=== PATIENT | female | born 1940 | race Caucasian/White ===

== ENCOUNTER 2017-01-16 05:21 | Inpatient (IN) | payer OTHER, MEDICARE ==
[2016-12-25 08:55] LABS: URINE BILIRUBIN NEGATIVE (Negative); URINE BLOOD NEGATIVE (Negative); URINE COLOR YELLOW; URINE GLUCOSE-RANDOM* NEGATIVE (Negative); URINE KETONES NEGATIVE (Negative); URINE PROTEIN (DIPSTICK) NEGATIVE (Negative); URINE SPECIFIC GRAVITY 1.015 (1.003-1.035); URINE UROBILINOGEN 0.2 E.U./dl (0.2-1.0)
[2016-12-25 08:57] LABS: HEMATOCRIT 43.1 % (37.0-47.0); HEMOGLOBIN 14.5 gm/dL (12.0-15.0); MCH 29.5 pg (26.0-34.0); MCHC 33.7 g/dL (28.0-37.0); MCV 87.4 fL (80.0-100.0); RBC 4.93 mil/uL (4.20-5.00); RDW 13.5 % (10.5-14.5); URINE LEUKOCYTES-REFLEX TRACE (Negative); WBC 6.6 thou/uL (4.0-11.0)
[2016-12-25 09:09] LABS: CASTS None Seen /LPF (None Seen); CRYSTALS None Seen /LPF (None Seen); SQUAMOUS None Seen /LPF (0-3); URINE RBC None Seen /HPF (0-2); URINE WBC-REFLEX 0-5 Rare /HPF (0-5)
[2016-12-25 09:22] LABS: ALBUMIN 3.8 g/dL (3.4-5.0); CALCIUM 9.3 mg/dL (8.5-10.1); CREATININE 0.8 mg/dL (0.6-1.0); POTASSIUM 4.1 mmol/L (3.5-5.1)
[2017-01-15 15:00] VITALS: BP 144/83
[~2017-01-16] VITALS: Ht 157.5 cm; Wt 93.0 kg
[2017-01-16] VITALS (7 sets, daily range): BP systolic 107–144; BP diastolic 53–83
--- NOTE | ~2017-01-16 | D ---
[facility] [place] [address] DISCHARGE SUMMARY Name: MAR BATES Room #: 412-P [facility] IN M.R.#: [id number] Admission: 01/16/17 Attend Phys: Filippo Moran MD Discharge: Date of : 44 Report #: [id number] THIS REPORT FOR: //name// CC: Filippo PABLO unknown DATE OF SERVICE: 01/19/2017 FINAL DIAGNOSIS: End-stage degenerative arthritis, right knee. 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 She has progressive right knee pain with moderate varus malalignment and significant limitations. She has tried conservative measures without clear benefit and has elected to have his right total knee arthroplasty at this time. HOSPITAL COURSE: The patient was admitted and taken to the operating room on January 06. She underwent right total knee arthroplasty which she tolerated nicely. Postoperatively, she did have moderate pain and required some assistance for pain management. She made gradual progress with her pain control and with physical therapy. She still needs some assistance for ambulation, but seems to be sufficiently improved such that she prefers to go home with family assistance today on January 19. She is instructed to continue using a walker and have appropriate assistance available as needed. She will begin home visiting therapy and then gradually advance to outpatient therapy when symptoms allow. DISCHARGE MEDICATIONS: Include hydrocodone 10/325 one-half to one tablet q. 4 hours p.r.n. for pain and Xarelto 10 mg daily. I have instructed the patient and family to call me directly should there be any problems or questions. We can see her back in 1 week for routine followup and we will see her back in 2 weeks for suture removal. By: [id number] Filippo Moran MD /nt
--- NOTE | ~2017-01-16 | O ---
[facility] [place] [address] OPERATIVE REPORT Name: MAR BATES Room #: 412-P ADM IN M.R.#: [id number] Admission: 01/16/17 Attend Phys: Filippo Moran MD Discharge: Date of : 44 Report #: [id number] THIS REPORT FOR: //name// CC: Filippo PABLO unknown DATE OF SERVICE: 01/16/2017 PREOPERATIVE DIAGNOSIS: End-stage degenerative arthritis, right knee. POSTOPERATIVE DIAGNOSIS: End-stage degenerative arthritis, right knee. PROCEDURE: Right total knee arthroplasty. 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 Symptoms have been unresponsive to conservative measures including activity moderation and injections. Her x-ray findings are only moderate, but her clinical findings are much more severe suggesting more significant chondromalacia. We discussed treatment options and she has elected to go ahead with right total knee arthroplasty. DESCRIPTION OF PROCEDURE: The patient was taken to the operating room where she was placed under general anesthesia. Prophylactic intravenous antibiotics were administered. The right knee and leg were meticulously prepped and draped and a thigh tourniquet inflated to 300 mmHg. An anterior longitudinal skin incision was made and carried through the medial retinaculum. The patella was reflected laterally rather marked degenerative change on the patella and the medial compartment was noted. There was less severe damage in the lateral side. It certainly seemed appropriate to proceed with total joint replacement given the findings. The [employer] knee system was utilized. Intramedullary guides were used on both the femur and the tibia. The femur was cut in 5 degrees of valgus and the tibia cut perpendicular to the long axis of bone. The femur seemed best suited for a size 4 femoral component. The tibia was best suited for a size 3 tibial component. A trial reduction was performed and a 10-mm polyethylene insert fit nicely resulting in good alignment, range of motion and stability. The patellar surface was resected and a 32-mm patellar button seemed to fit nicely, appropriate anchor holes were created and a trial reduction was performed. The patella seemed to track nicely. The trial components were removed. The intramedullary canal was blocked with a bone block on both the femoral and tibial sides. The surfaces were thoroughly irrigated and dried. Methyl methacrylate cement was mixed and injected into the porous surface of the proximal tibia. The [employer] size [address] [address] OPERATIVE REPORT Name: MAR BATES Room #: 412-P [facility] IN .R.#: [id number] Admission: 01/16/17 Attend Phys: Filippo Moran MD Discharge: Date of : 44 Report #: [id number] component was then inserted, impacting this into position, it seated nicely and appeared to be secure. A 10-mm polyethylene insert was snapped into place and it also seated nicely and appeared to be secure. A size 4 right femoral component was impacted onto the distal femur with a small amount of cement at the distal logs and anchor holes as she is somewhat osteopenic. This also seated nicely and appeared to be secure. The patella was cemented into place and secured with a patellar clamp. All excess cement was removed from around the margin of the components. Once the cement had hardened, range of motion, alignment, and stability were once again assessed and felt to be satisfactory. At this point, the tourniquet was deflated after a total tourniquet time of 45 minutes. A single Hemovac was left exiting through a lateral stab incision. The fascia was closed with multiple #1 Vicryl sutures. The subcutaneous tissues were closed with 0 Monocryl. The skin was closed with skin lula. A sterile dressing was applied. The patient was awakened and returned to recovery room in good condition. <ELECTRONICALLY SIGNED> By: Filippo Moran MD 01/17/17 1621 [id number] Filippo Moran MD /nt
[~2017-01-16 05:21] MED LIST: ACCUNEB SO1.25 MG/1 INH; ALLEGRA ALLERG180 MG PO; ASPIR 8181 MG PO; BENADRYL25 MG PO; CENTRUM SILVER1 EAC4 PO; COZAAR 50 MG TA50 M2 PO; FLONASE 0.05%50 MCG NASAL; NEURONTIN 300300 M1 PO; VITAMIN D-32000 UNIT PO
[2017-01-17 04:26] LABS: ABSOLUTE NEUTROPHILS 7.7 thou/uL (1.4-8.2); BASOPHILS 0.2 % (0.0-2.0); EOSINOPHILS 0.4 % (0.0-3.0); HEMATOCRIT 33.4 % (37.0-47.0); LYMPHOCYTES 12.1 % (24.0-44.0); MCH 29.2 pg (26.0-34.0); MCHC 33.1 g/dL (28.0-37.0); MCV 88.2 fL (80.0-100.0); MONOCYTES 7.8 % (1.0-8.0); PLATELET COUNT 144 thou/uL (150-400); POLYS 79.5 % (36.0-66.0); RBC 3.78 mil/uL (4.20-5.00); RDW 13.6 % (10.5-14.5); WBC 9.7 thou/uL (4.0-11.0)
[2017-01-17 04:34] LABS: MANUAL DIFF NO
[2017-01-17 04:39] LABS: CALCIUM 7.8 mg/dL (8.5-10.1); CREATININE 0.8 mg/dL (0.6-1.0); MAGNESIUM 1.7 mg/dL (1.8-2.4); POTASSIUM 4.6 mmol/L (3.5-5.1); TOTAL BILIRUBIN 0.4 mg/dL (<0.1-1.0); TOTAL PROTEIN 5.4 g/dL (6.4-8.2)
[2017-01-17 04:58] VITALS: BP 111/52
[2017-01-17 07:10] VITALS: BP 103/51
[2017-01-17 15:32] VITALS: BP 133/54
[2017-01-17 20:09] VITALS: BP 111/72
[2017-01-18 04:00] VITALS: BP 142/61
[2017-01-18 06:32] LABS: HEMATOCRIT 33.2 % (37.0-47.0); HEMOGLOBIN 11.1 gm/dL (12.0-15.0); MCH 29.3 pg (26.0-34.0); MCHC 33.5 g/dL (28.0-37.0); MCV 87.7 fL (80.0-100.0); RBC 3.78 mil/uL (4.20-5.00); WBC 9.9 thou/uL (4.0-11.0)
[2017-01-18 08:00] VITALS: BP 114/79
[2017-01-18 15:32] VITALS: BP 150/56
[2017-01-18 21:11] VITALS: BP 130/64
[2017-01-19 04:58] VITALS: BP 129/65
[2017-01-19 06:02] LABS: HEMATOCRIT 30.4 % (37.0-47.0); HEMOGLOBIN 10.4 gm/dL (12.0-15.0); MCH 29.6 pg (26.0-34.0); MCHC 34.1 g/dL (28.0-37.0); MCV 86.6 fL (80.0-100.0); RBC 3.51 mil/uL (4.20-5.00); RDW 12.8 % (10.5-14.5); WBC 8.5 thou/uL (4.0-11.0)
[2017-01-19 08:08] VITALS: BP 131/66
[2017-01-19] MEDS ORDERED: ONDANSETRON HCL4 M1 SUBLING (09:24)
[2017-01-19] MEDS ORDERED: XARELTO10 MG PO (09:24)
[2017-01-19 16:11] VITALS: BP 117/56
[2017-01-19 20:45] VITALS: BP 144/61
[2017-01-20 05:33] VITALS: BP 133/56
[2017-01-20 12:21] VITALS: BP 133/56
[2017-01-20] MEDS ORDERED: SENNA8.6 MG PO (12:30)
[2017-01-20] MEDS ORDERED: NORCO 7.5-3251 EACH PO (12:30)
[2017-01-20 12:56] VITALS: BP 133/56
== END 2017-01-20 13:55 | disposition home health service (06) | DRG 470 ==
LOC: PRE → TBA 05:21 → 4N 05:21 → PRE 05:27 → 4N 13:40 → ENTRNSPT 01-20 13:43 → EDTRNSPTSTS 01-20 13:46 → 4N 01-20 13:55
PROVIDERS: Nurse Practitioner; Orthopaedic Surgery
PROC: 0SRC069 Replacement of Right Knee Joint with Oxidized Zirconium on Polyethylene Synthetic Substitute, Cemented, Open Approach (ICD-10-PCS; principal; 2017-01-16)
DX: M17.11 Unilateral primary osteoarthritis, right knee (principal); N39.0 Urinary tract infection, site not specified; I10 Essential (primary) hypertension; J45.909 Unspecified asthma, uncomplicated; J43.9 Emphysema, unspecified; B96.20 Unspecified Escherichia coli [E. coli] as the cause of diseases classified elsewhere; G62.9 Polyneuropathy, unspecified; Z79.82 Long term (current) use of aspirin; Z79.899 Other long term (current) drug therapy; Z90.49 Acquired absence of other specified parts of digestive tract; Z98.49 Cataract extraction status, unspecified eye; Z88.6 Allergy status to analgesic agent; Z88.8 Allergy status to other drugs, medicaments and biological substances
CPT/HCPCS: 10790; 50010; 50101; 50415; 50954; 51130; 51225; 51412; 51771; 53364; 56525; 62110; 62900; 64039; 70005